=== PATIENT | male | born 1985 | race Caucasian/White ===

== ENCOUNTER 2020-04-20 17:36 | Inpatient (IN) | payer MEDICARE, MEDICAID, SELFPAY ==
[2020-04-20 17:46] VITALS: BP 109/72; PULSE 88; RESP 17; TEMP 36.9; O2SAT 99
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
[2020-04-20 18:53] VITALS: BP 94/65; PULSE 91; RESP 20; TEMP 36.6; O2SAT 100
--- NOTE | 2020-04-20 19:02 | PC.NURSE ---
Report received. PT just moved into the pod. Calm and cooperative. Needs to be seen by BHN. Med rec needs to be done STAT per provider.
[2020-04-20 19:43] LABS: MANUAL DIFF FLAG NO
[2020-04-20 19:55] LABS: Basophils Percent Auto 0.3 % (0-2); Hematocrit 36.6 % (42-52); Imm Gran Abs Auto 0.04 X10*3/uL (0.00-0.03); Imm Gran Pct Auto 0.3 % (0.0-0.4); Lymphocytes Absolute Auto 2.3 X10*3/uL (1.2-4.9); Lymphocytes Percent Auto 16.7 % (20-40); Mean Corpuscular HGB Conc 32.8 g/dl (31.0-36.0); Mean Corpuscular Hemoglobin 28.9 pg (27.0-33.0); Mean Corpuscular Volume 88.2 fL (80-98); Mean Platelet Volume 10.4 fL (9.4-12.4); Monocytes Absolute Auto 0.7 X10*3/uL (0.1-1.2); Monocytes Percent Auto 4.7 % (2-11); Neutrophils Absolute Auto 10.9 X10*3/uL (2.0-8.3); Platelet Count 214 X10*3/uL (160-400); Red Blood Count 4.15 X10*6/uL (4.60-5.80); Red Cell Distribution Width 14.3 % (11.0-16.0)
[2020-04-20 20:10] LABS: Anion Gap 14 (12-20); Blood Urea Nitrogen 11 mg/dL (9-16); Calcium 8.5 mg/dL (8.4-10.2); Carbon Dioxide 26 mmol/L (22-29); Chloride 103 mmol/L (96-108); Creatinine Clr Calc Pharmacy 99.6; Estimated Glomerular Filt Rate > 60; Glucose Random 123 mg/dL (60-115); Potassium 4.3 mmol/l (3.3-5.1); Sodium 139 mmol/L (135-145)
--- NOTE | 2020-04-20 20:11 | PC.NURSE ---
Called N to confirm they have received fax on PT. N stated they were not sure if someone would be out tonight for consult.
--- NOTE | 2020-04-20 21:53 | PC.NURSE ---
BHN at bedside.
--- NOTE | 2020-04-20 22:06 | PC.NURSE ---
PT is inpatient bed search at this time per [facility] PT is on a Section 12 at this time.
[2020-04-20 22:10] VITALS: BP 109/68; PULSE 91; RESP 18; TEMP 36.7; O2SAT 100
[2020-04-20] MEDS: Docusate Sodium 100 MG CAPSULE PO (22:36)
[2020-04-20] MEDS: traZODone HCL 100 MG TABLET PO (22:37)
[2020-04-20] MEDS: Divalproex Sodium 500 MG TABLET.DR PO (22:37)
[2020-04-20] MEDS: Benztropine Mesylate 1 MG TABLET PO (22:38)
[2020-04-20] MEDS: Desmopressin Acetate 0.2 MG TABLET 0.6 MG PO (22:38)
[2020-04-20] MEDS: cloZAPine 100 MG TABLET 300 MG PO (22:39)
[2020-04-20] MEDS: cloZAPine 25 MG TABLET 50 MG PO (22:39)
[2020-04-20 23:53] VITALS: RESP 17
--- NOTE | 2020-04-21 | ECG_ITS ---
Test Reason : MEDICAL CLEARANCE Blood Pressure : / mmHG Vent. Rate : 071 BPM Atrial Rate : 071 BPM P-R Int : 138 ms QRS Dur : 106 ms QT Int : 358 ms P-R-T Axes : 082 088 075 degrees QTc Int : 389 ms Normal sinus rhythm with sinus arrhythmia Nonspecific ST abnormality Intra-ventricular conduction delay Abnormal ECG When compared with ECG of 18-MAY-2019 08:37, No significant change was found Referred By: Dorothy Brooks Electronically Signed By:TACO STEPHENSON MD
[2020-04-21 06:19] VITALS: BP 100/63; PULSE 75; RESP 16; TEMP 36.8; O2SAT 100
--- NOTE | 2020-04-21 06:59 | PC.NURSE ---
report received. Pt currently sleeping, respirations even and unlabored, in no apparent distress. Breakfast at bedside. Pt is inpatient bedsearch.
--- NOTE | 2020-04-21 09:22 | PC.NURSE ---
This RN spoke with Kyle from [facility] for clarification on haldol deconate last administration date. Kyle stated that he will call back once he has access to medication record and stated that Cherrie has been 100% compliant with his medications . Kyle will fax over medication list and administration date as soon as he has access to record.
[2020-04-21 09:30] VITALS: BP 95/62; PULSE 75; RESP 18; TEMP 37.1; O2SAT 100
[2020-04-21 11:23] LABS: Amphetamine Screen Urine Not Detected (Not Detect); Barbiturates, Urine Not Detected (Not Detect); Benzodiazepines Screen Urine Not Detected (Not Detect); Cannabinoid Screen Urine POSITIVE (Not Detect); Cocaine Screen Urine POSITIVE (Not Detect); Opiate Screen Urine Not Detected (Not Detect); Phencyclidine Screen Urine Not Detected (Not Detect)
[2020-04-21 12:59] LABS: SARS COV2 PCR INHOUSE NEGATIVE (Negative)
--- NOTE | 2020-04-21 14:01 | PC.NURSE ---
Medication list recieved from intermediate, per staff pt due for Haldol Dec the week of the . Provider aware
[2020-04-21] MEDS: Divalproex Sodium 500 MG TABLET.DR PO ×2 (14:18→21:28)
[2020-04-21 18:13] VITALS: BP 110/64; PULSE 84; RESP 18; TEMP 37; O2SAT 100
--- NOTE | 2020-04-21 19:13 | PC.NURSE ---
Report received. PT is sitting in his room quietly. Calm and cooperative. Waiting to be transferred to .
[2020-04-21] MEDS: Benztropine Mesylate 1 MG TABLET PO (21:28)
[2020-04-21] MEDS: cloZAPine 100 MG TABLET 300 MG PO (21:29)
[2020-04-21] MEDS: traZODone HCL 100 MG TABLET PO (21:29)
[2020-04-21] MEDS: cloZAPine 25 MG TABLET 50 MG PO (21:29)
[2020-04-21] MEDS: Desmopressin Acetate 0.2 MG TABLET 0.6 MG PO (21:30)
[2020-04-21 22:54] LABS: Valproate 18.5 mcg/mL (50.0-100.0)
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
[2020-04-22 06:00] VITALS: BP 133/71; PULSE 102; TEMP 36.5
[2020-04-22 08:17] LABS: Estimated Average Glucose 105 mg/dL; Hemoglobin A1c % 5.3 %
[2020-04-22 08:46] LABS: Cholesterol 123 mg/dL; HDL Cholesterol 52 mg/dL; LDL Cholesterol Calculated 56 mg/dl; Triglycerides 76 mg/dL
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
[2020-04-22] MEDS: Divalproex Sodium 500 MG TABLET.DR PO ×3 (10:46→20:26)
[2020-04-22] MEDS: Nicotine Polacrilex 2 MG GUM BUCCAL (14:17)
[2020-04-22] MEDS: Flu Vacc QS2020-21(6mos up)/PF 0.5 ML SYRINGE IM (15:02)
[2020-04-22 18:13] VITALS: BP 106/66; PULSE 104; TEMP 36.9
[2020-04-22] MEDS: LORazepam 1 MG TABLET PO (18:20)
[2020-04-22] MEDS: Benztropine Mesylate 1 MG TABLET PO ×2 (18:20→20:26)
[2020-04-22] MEDS: HaloperidoL 5 MG TABLET PO (18:20)
[2020-04-22] MEDS: cloZAPine 100 MG TABLET 300 MG PO (20:25)
[2020-04-22] MEDS: traZODone HCL 100 MG TABLET PO (20:26)
[2020-04-22] MEDS: Desmopressin Acetate 0.2 MG TABLET 0.6 MG PO (20:26)
[2020-04-22] MEDS: cloZAPine 25 MG TABLET 50 MG PO (20:26)
[2020-04-23] MEDS: Divalproex Sodium 500 MG TABLET.DR PO ×3 (08:36→20:49)
[2020-04-23] MEDS: Nicotine Polacrilex 2 MG GUM BUCCAL (17:00)
[2020-04-23 18:00] VITALS: BP 127/70; PULSE 100; TEMP 36.4
[2020-04-23] MEDS: Desmopressin Acetate 0.2 MG TABLET 0.6 MG PO (20:49)
[2020-04-23] MEDS: traZODone HCL 100 MG TABLET PO (20:49)
[2020-04-23] MEDS: cloZAPine 25 MG TABLET 50 MG PO (20:50)
[2020-04-23] MEDS: cloZAPine 100 MG TABLET 300 MG PO (20:50)
[2020-04-23] MEDS: Benztropine Mesylate 1 MG TABLET PO (20:52)
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
[2020-04-24 06:10] VITALS: BP 120/67; PULSE 100; RESP 16; TEMP 36.4; O2SAT 99
[2020-04-24] MEDS: Divalproex Sodium 500 MG TABLET.DR PO ×3 (08:05→20:23)
[2020-04-24] MEDS: Nicotine Polacrilex 2 MG GUM BUCCAL ×2 (09:43→21:16)
--- NOTE | 2020-04-24 12:47 | HO.PSYCHPN ---
Subjective Subjective Date of Service: 04/24/20 Reason For Visit: psychosis and agitation Subjective Notes: Conditional Voluntary Interim History: Cherrie was in behavioral control despite there being a lot of agitated peers on the unit. He tended to keep to himself. He has been compliant with medications. Medication Compliance: Yes Side effects from medications: No Attending Groups: No Review of Systems Acute medical concerns: No Medical Review of Systems: unchanged Mental Status Exam Mental Status Exam Patient Appearance: Unkempt Patient Orientation: Person Level of Consciousness: Restless and Inappropriate Patient Behavior: Posturing, Wandering, Invasion - Personal Space and Poor Eye Contact Mood Description: Apathetic Affect Description: Apathetic Ability to Follow Directions: Poor Speech Pattern: Impoverished Memory Description: Immediate Impaired Hallucinations: None Delusions: Paranoid Ideation Thought Process: Slowed Thinking and Word Salad Thought Content: positive for Thought Blocking, positive for Incoherent, positive for Slowed Thinking, negative for Suicidal Ideation and negative for Homicidal Ideation Diagnostics Vital Signs (24Hr): Vital Signs - 24 hr 04/23/20 18:00 04/24/20 06:10 Temperature 97.5 F 97.6 F Pulse Rate 100 100 Respiratory Rate 16 Blood Pressure 127/70 120/67 Pulse Oximetry 99 Body Mass Index 20.0 Labs Results: 04/20/20 19:33 04/20/20 19:33 Medications Medications Current Medications Generic Name Dose Route Start Last Admin Trade Name Freq PRN Reason Stop Dose Admin Al Hydroxide/Mg Hydroxide 30 ml 04/21/20 19:32 Magnesium Hydrox/Alum Hydrox 30 Ml Oral.Susp PO Q6H PRN Heartburn/Nausea Benztropine Mesylate 1 mg 04/21/20 21:00 04/23/20 20:52 Benztropine Mesylate 1 Mg Tablet PO 1 mg BEDTIME STEF Administration Benztropine Mesylate 1 mg 04/22/20 18:00 04/22/20 18:20 Benztropine Mesylate 1 Mg Tablet PO 1 mg Q4H PRN Administration Extrapyramidal Effects Clozapine 50 mg 04/21/20 21:00 04/23/20 20:50 Clozapine 25 Mg Tablet PO 50 mg BEDTIME STEF Administration Clozapine 300 mg 04/21/20 21:00 04/23/20 20:50 Clozapine 100 Mg Tablet PO 300 mg BEDTIME STEF Administration Desmopressin Acetate 0.6 mg 04/21/20 21:00 04/23/20 20:49 Desmopressin Acetate 0.2 Mg Tablet PO 0.6 mg BEDTIME STEF Administration Divalproex Sodium 500 mg 04/21/20 09:00 04/24/20 08:05 Divalproex Sodium 500 Mg Tablet.Dr PO 500 mg TID STEF Administration Docusate Sodium 100 mg 04/20/20 21:57 04/20/20 22:36 Docusate Sodium 100 Mg Capsule PO 100 mg BID PRN Administration constipation Haloperidol 5 mg 04/22/20 18:17 04/22/20 18:20 Haloperidol 5 Mg Tablet PO 5 mg Q4H PRN Administration Anxiety Haloperidol Decanoate 100 mg 04/21/20 09:00 04/21/20 14:02 Haloperidol Decanoate 50 Mg/Ml Ampul IM Not Given Q28D STEF Hydroxyzine HCl 25 mg 04/21/20 19:32 Hydroxyzine Hcl 25 Mg Tablet PO BEDTIME PRN Anxiety Lorazepam 1 mg 04/22/20 18:00 04/22/20 18:20 Lorazepam 1 Mg Tablet PO 1 mg Q4H PRN Administration Anxiety Magnesium Hydroxide 30 ml 04/21/20 19:32 Milk Of Magnesia 30 Ml Oral.Susp PO DAILY PRN Constipation Nicotine Polacrilex 2 mg 04/21/20 21:49 04/24/20 09:43 Nicotine Polacrilex 2 Mg Gum BUCCAL 2 mg Q2H PRN Administration Nicotine Cravings Pharmacy Consult 1 each 04/20/20 19:51 Consult Rx Perform Med Rec MISCELLANE ONCE PRN Consult order Trazodone HCl 100 mg 04/21/20 21:00 04/23/20 20:49 Trazodone Hcl 100 Mg Tablet PO 100 mg BEDTIME STEF Administration Trazodone HCl 50 mg 04/21/20 19:32 Trazodone Hcl 50 Mg Tablet PO BEDTIME PRN Insomnia Allergies Allergies Allergy/AdvReac Type Severity Reaction Status Date / Time lorazepam [LORAZEPAM] AdvReac Intermediate paradoxical Unverified 03/03/20 15:53 disinhbition risperidone [From RISPERDAL] AdvReac Unknown SEVERE Unverified 03/03/20 15:53 AKATHESIA/ASSAULTIVE BEHAVIOR Assessment & Plan Assessment & Plan (1) Schizophrenia: Status: Acute Code(s): F20.9 - Schizophrenia, unspecified Assessment and Plan: CT current medication regime Greater than 50% of the session was spent on counseling and/or coordination of care Patient educated on: diagnosis, medication risk/benefits and substance abuse Informed Consent: does not understand Reason for contiued inpatient stay Substantial Risk for: inability to function and rapid decompensation
[2020-04-24 16:44] VITALS: BP 119/72; PULSE 99; TEMP 36.4
[2020-04-24 18:00] VITALS: BP 119/72; PULSE 99; TEMP 36.4
[2020-04-24] MEDS: cloZAPine 25 MG TABLET 50 MG PO (20:21)
[2020-04-24] MEDS: cloZAPine 100 MG TABLET 300 MG PO (20:22)
[2020-04-24] MEDS: Benztropine Mesylate 1 MG TABLET PO (20:22)
[2020-04-24] MEDS: Desmopressin Acetate 0.2 MG TABLET 0.6 MG PO (20:22)
[2020-04-24] MEDS: traZODone HCL 100 MG TABLET PO (21:23)
[2020-04-25 06:00] VITALS: BP 107/71; PULSE 106; TEMP 36.3
[2020-04-25] MEDS: Divalproex Sodium 500 MG TABLET.DR PO ×3 (09:18→20:58)
--- NOTE | 2020-04-25 14:11 | HO.PSYCHPN ---
Subjective Subjective Date of Service: 04/25/20 Reason For Visit: psychosis and agitation Subjective Notes: Conditional Voluntary Interim History: Cherrie was in behavioral control despite there being a lot of agitated peers on the unit. He tended to keep to himself. He is eating adequately. SW will be in contact with his house staff. He has been compliant with medications. Medication Compliance: Yes Side effects from medications: No Attending Groups: No Review of Systems Acute medical concerns: No Medical Review of Systems: unchanged Mental Status Exam Mental Status Exam Patient Appearance: Unkempt Patient Orientation: Person Level of Consciousness: Restless and Inappropriate Patient Behavior: Posturing, Wandering, Invasion - Personal Space and Poor Eye Contact Mood Description: Apathetic Affect Description: Apathetic Ability to Follow Directions: Poor Speech Pattern: Impoverished Memory Description: Immediate Impaired Hallucinations: None Delusions: Paranoid Ideation Thought Process: Slowed Thinking and Word Salad Thought Content: positive for Thought Blocking, positive for Incoherent, positive for Slowed Thinking, negative for Suicidal Ideation and negative for Homicidal Ideation Judgement: Fair Diagnostics Vital Signs (24Hr): Vital Signs - 24 hr 04/24/20 16:44 04/24/20 18:00 04/25/20 06:00 Temperature 97.6 F 97.6 F 97.4 F Pulse Rate 99 99 106 H Blood Pressure 119/72 119/72 107/71 Body Mass Index 20.0 Labs Results: 04/20/20 19:33 04/20/20 19:33 Medications Medications Current Medications Generic Name Dose Route Start Last Admin Trade Name Freq PRN Reason Stop Dose Admin Al Hydroxide/Mg Hydroxide 30 ml 04/21/20 19:32 Magnesium Hydrox/Alum Hydrox 30 Ml Oral.Susp PO Q6H PRN Heartburn/Nausea Benztropine Mesylate 1 mg 04/21/20 21:00 04/24/20 20:22 Benztropine Mesylate 1 Mg Tablet PO 1 mg BEDTIME STEF Administration Benztropine Mesylate 1 mg 04/22/20 18:00 04/22/20 18:20 Benztropine Mesylate 1 Mg Tablet PO 1 mg Q4H PRN Administration Extrapyramidal Effects Clozapine 50 mg 04/21/20 21:00 04/24/20 20:21 Clozapine 25 Mg Tablet PO 50 mg BEDTIME STEF Administration Clozapine 300 mg 04/21/20 21:00 04/24/20 20:22 Clozapine 100 Mg Tablet PO 300 mg BEDTIME STEF Administration Desmopressin Acetate 0.6 mg 04/21/20 21:00 04/24/20 20:22 Desmopressin Acetate 0.2 Mg Tablet PO 0.6 mg BEDTIME STEF Administration Divalproex Sodium 500 mg 04/21/20 09:00 04/25/20 09:18 Divalproex Sodium 500 Mg Tablet.Dr PO 500 mg TID STEF Administration Docusate Sodium 100 mg 04/20/20 21:57 04/20/20 22:36 Docusate Sodium 100 Mg Capsule PO 100 mg BID PRN Administration constipation Haloperidol 5 mg 04/22/20 18:17 04/22/20 18:20 Haloperidol 5 Mg Tablet PO 5 mg Q4H PRN Administration Anxiety Haloperidol Decanoate 100 mg 04/21/20 09:00 04/21/20 14:02 Haloperidol Decanoate 50 Mg/Ml Ampul IM Not Given Q28D STEF Hydroxyzine HCl 25 mg 04/21/20 19:32 Hydroxyzine Hcl 25 Mg Tablet PO BEDTIME PRN Anxiety Lorazepam 1 mg 04/22/20 18:00 04/22/20 18:20 Lorazepam 1 Mg Tablet PO 1 mg Q4H PRN Administration Anxiety Magnesium Hydroxide 30 ml 04/21/20 19:32 Milk Of Magnesia 30 Ml Oral.Susp PO DAILY PRN Constipation Nicotine Polacrilex 2 mg 04/21/20 21:49 04/24/20 21:16 Nicotine Polacrilex 2 Mg Gum BUCCAL 2 mg Q2H PRN Administration Nicotine Cravings Pharmacy Consult 1 each 04/20/20 19:51 Consult Rx Perform Med Rec MISCELLANE ONCE PRN Consult order Trazodone HCl 100 mg 04/21/20 21:00 04/24/20 21:23 Trazodone Hcl 100 Mg Tablet PO 100 mg BEDTIME STEF Administration Trazodone HCl 50 mg 04/21/20 19:32 Trazodone Hcl 50 Mg Tablet PO BEDTIME PRN Insomnia Allergies Allergies Allergy/AdvReac Type Severity Reaction Status Date / Time lorazepam [LORAZEPAM] AdvReac Intermediate paradoxical Unverified 03/03/20 15:53 disinhbition risperidone [From RISPERDAL] AdvReac Unknown SEVERE Unverified 03/03/20 15:53 AKATHESIA/ASSAULTIVE BEHAVIOR Assessment & Plan Assessment & Plan (1) Schizophrenia: Status: Acute Code(s): F20.9 - Schizophrenia, unspecified Assessment and Plan: CT current treatment plan Greater than 50% of the session was spent on counseling and/or coordination of care Patient educated on: diagnosis, medication risk/benefits and substance abuse Informed Consent: does not understand Reason for contiued inpatient stay Substantial Risk for: rapid decompensation
[2020-04-25] MEDS: cloZAPine 25 MG TABLET 50 MG PO (20:57)
[2020-04-25] MEDS: cloZAPine 100 MG TABLET 300 MG PO (20:57)
[2020-04-25] MEDS: Benztropine Mesylate 1 MG TABLET PO (20:57)
[2020-04-25] MEDS: traZODone HCL 100 MG TABLET PO (20:58)
[2020-04-25] MEDS: Desmopressin Acetate 0.2 MG TABLET 0.6 MG PO (20:58)
[2020-04-25] MEDS: Nicotine Polacrilex 2 MG GUM BUCCAL (21:00)
[2020-04-26 06:30] VITALS: BP 95/60; PULSE 73; RESP 16; TEMP 35.9; O2SAT 100
--- NOTE | 2020-04-26 09:37 | P.PNPSI_ITS ---
Subjective Subjective Date of Service: 04/26/20 Reason For Visit: psychosis and agitation Subjective Notes: Conditional Voluntary Interim History: Cherrie was in behavioral control despite there being a lot of agitated peers on the unit. He tended to keep to himself. He is asking when he can leave the hospital and understands that we will work with his staff. He is eating very well SW has been in contact with his staff and DC planned for 04/27/20 He has been compliant with medications. Medication Compliance: Yes Side effects from medications: No Attending Groups: No Review of Systems Acute medical concerns: No Medical Review of Systems: unchanged Mental Status Exam Mental Status Exam Patient Appearance: Well Grooomed Patient Orientation: Person Level of Consciousness: Restless and Inappropriate Patient Behavior: Appropriate, Wandering and Poor Eye Contact Mood Description: Apathetic Affect Description: Apathetic Ability to Follow Directions: Poor Speech Pattern: Impoverished Memory Description: Immediate Impaired Hallucinations: None Delusions: Paranoid Ideation Thought Process: Slowed Thinking Thought Content: positive for Thought Blocking, positive for Incoherent, posi tive for Slowed Thinking, negative for Suicidal Ideation and negative for Homicidal Ideation Judgement: Fair Diagnostics Vital Signs (24Hr): Vital Signs - 24 hr 04/26/20 06:30 Temperature 96.6 F L Pulse Rate 73 Respiratory Rate 16 Blood Pressure 95/60 Pulse Oximetry 100 Body Mass Index 20.0 Labs Results: 04/20/20 19:33 04/20/20 19:33 Medications Medications Current Medications Generic Name Dose Route Start Last Admin Trade Name Freq PRN Reason Stop Dose Admin Al Hydroxide/Mg Hydroxide 30 ml 04/21/20 19:32 Magnesium Hydrox/Alum Hydrox 30 Ml Oral.Susp PO Q6H PRN Heartburn/Nausea Benztropine Mesylate 1 mg 04/21/20 21:00 04/25/20 20:57 Benztropine Mesylate 1 Mg Tablet PO 1 mg BEDTIME STEF Administration Benztropine Mesylate 1 mg 04/22/20 18:00 04/22/20 18:20 Benztropine Mesylate 1 Mg Tablet PO 1 mg Q4H PRN Administration Extrapyramidal Effects Clozapine 50 mg 04/21/20 21:00 04/25/20 20:57 Clozapine 25 Mg Tablet PO 50 mg BEDTIME STEF Administration Clozapine 300 mg 04/21/20 21:00 04/25/20 20:57 Clozapine 100 Mg Tablet PO 300 mg BEDTIME STEF Administration Desmopressin Acetate 0.6 mg 04/21/20 21:00 04/25/20 20:58 Desmopressin Acetate 0.2 Mg Tablet PO 0.6 mg BEDTIME STEF Administration Divalproex Sodium 500 mg 04/21/20 09:00 04/25/20 20:58 Divalproex Sodium 500 Mg Tablet.Dr PO 500 mg TID STEF Administration Docusate Sodium 100 mg 04/20/20 21:57 04/20/20 22:36 Docusate Sodium 100 Mg Capsule PO 100 mg BID PRN Administration constipation Haloperidol 5 mg 04/22/20 18:17 04/22/20 18:20 Haloperidol 5 Mg Tablet PO 5 mg Q4H PRN Administration Anxiety Haloperidol Decanoate 100 mg 04/21/20 09:00 04/21/20 14:02 Haloperidol Decanoate 50 Mg/Ml Ampul IM Not Given Q28D STEF Hydroxyzine HCl 25 mg 04/21/20 19:32 Hydroxyzine Hcl 25 Mg Tablet PO BEDTIME PRN Anxiety Lorazepam 1 mg 04/22/20 18:00 04/22/20 18:20 Lorazepam 1 Mg Tablet PO 1 mg Q4H PRN Administration Anxiety Magnesium Hydroxide 30 ml 04/21/20 19:32 Milk Of Magnesia 30 Ml Oral.Susp PO DAILY PRN Constipation Nicotine Polacrilex 2 mg 04/21/20 21:49 04/25/20 21:00 Nicotine Polacrilex 2 Mg Gum BUCCAL 2 mg Q2H PRN Administration Nicotine Cravings Pharmacy Consult 1 each 04/20/20 19:51 Consult Rx Perform Med Rec MISCELLANE ONCE PRN Consult order Trazodone HCl 100 mg 04/21/20 21:00 04/25/20 20:58 Trazodone Hcl 100 Mg Tablet PO 100 mg BEDTIME STEF Administration Trazodone HCl 50 mg 04/21/20 19:32 Trazodone Hcl 50 Mg Tablet PO BEDTIME PRN Insomnia Allergies Allergies Allergy/AdvReac Type Severity Reaction Status Date / Time lorazepam [LORAZEPAM] AdvReac Intermediate paradoxical Unverified 03/03/20 15:53 disinhbition risperidone [From RISPERDAL] AdvReac Unknown SEVERE Unverified 03/03/20 15:53 AKATHESIA/ASSAULTIVE BEHAVIOR Assessment & Plan Assessment & Plan (1) Schizophrenia: Status: Acute Code(s): F20.9 - Schizophrenia, unspecified (2) Substance abuse: Status: Acute Code(s): F19.10 - Other psychoactive substance abuse, uncomplicated Assessment and Plan: Continue current plan of treatment Greater than 50% of the session was spent on counseling and/or coordination of c are Patient educated on: diagnosis, medication risk/benefits and substance abuse Informed Consent: does not understand Reason for contiued inpatient stay Substantial Risk for: rapid decompensation
[2020-04-26] MEDS: Divalproex Sodium 500 MG TABLET.DR PO ×3 (09:41→20:09)
[2020-04-26 18:00] VITALS: BP 125/66; PULSE 91; TEMP 36.8
[2020-04-26] MEDS: Nicotine Polacrilex 2 MG GUM BUCCAL (20:06)
[2020-04-26] MEDS: cloZAPine 100 MG TABLET 300 MG PO (20:08)
[2020-04-26] MEDS: Benztropine Mesylate 1 MG TABLET PO (20:09)
[2020-04-26] MEDS: traZODone HCL 100 MG TABLET PO (20:09)
[2020-04-26] MEDS: Desmopressin Acetate 0.2 MG TABLET 0.6 MG PO (20:09)
[2020-04-26] MEDS: cloZAPine 25 MG TABLET 50 MG PO (20:49)
[2020-04-27 08:17] VITALS: BP 90/54; PULSE 94; RESP 14; TEMP 36.9; O2SAT 100
[2020-04-27] MEDS: Divalproex Sodium 500 MG TABLET.DR PO ×3 (08:35→20:12)
[2020-04-27] MEDS: Nicotine Polacrilex 2 MG GUM BUCCAL ×2 (09:11→17:21)
--- NOTE | 2020-04-27 09:16 | P.PNPSI_ITS ---
Subjective Subjective Date of Service: 04/27/20 Reason For Visit: psychosis and agitation Subjective Notes: Conditional Voluntary Interim History: Cherrie was in behavioral control despite there being a lot of agitated peers on the unit. He tended to keep to himself. He is being discharged back to his retirement tomorrow and he is pleased about this. He has been compliant with medications. Medication Compliance: Yes Side effects from medications: No Attending Groups: No Review of Systems Acute medical concerns: No Medical Review of Systems: unchanged Mental Status Exam Mental Status Exam Patient Appearance: Well Grooomed Patient Orientation: Person Level of Consciousness: Restless and Inappropriate Patient Behavior: Appropriate, Wandering and Poor Eye Contact Mood Description: Apathetic Affect Description: Apathetic Ability to Follow Directions: Poor Speech Pattern: Impoverished Memory Description: Immediate Impaired Hallucinations: None Delusions: Paranoid Ideation Thought Process: Slowed Thinking Thought Content: positive for Thought Blocking, positive for Incoherent, po sitive for Slowed Thinking, negative for Suicidal Ideation and negative for Homicidal Ideation Judgement: Fair Diagnostics Vital Signs (24Hr): Vital Signs - 24 hr 04/26/20 18:00 04/27/20 08:17 Temperature 98.2 F 98.4 F Pulse Rate 91 94 Respiratory Rate 14 Blood Pressure 125/66 90/54 L Pulse Oximetry 100 Body Mass Index 20.0 Labs Results: 04/20/20 19:33 04/20/20 19:33 Medications Medications Current Medications Generic Name Dose Route Start Last Admin Trade Name Freq PRN Reason Stop Dose Admin Al Hydroxide/Mg Hydroxide 30 ml 04/21/20 19:32 Magnesium Hydrox/Alum Hydrox 30 Ml Oral.Susp PO Q6H PRN Heartburn/Nausea Benztropine Mesylate 1 mg 04/21/20 21:00 04/26/20 20:09 Benztropine Mesylate 1 Mg Tablet PO 1 mg BEDTIME STEF Administration Benztropine Mesylate 1 mg 04/22/20 18:00 04/22/20 18:20 Benztropine Mesylate 1 Mg Tablet PO 1 mg Q4H PRN Administration Extrapyramidal Effects Clozapine 50 mg 04/21/20 21:00 04/26/20 20:49 Clozapine 25 Mg Tablet PO 50 mg BEDTIME STEF Administration Clozapine 300 mg 04/21/20 21:00 04/26/20 20:08 Clozapine 100 Mg Tablet PO 300 mg BEDTIME STEF Administration Desmopressin Acetate 0.6 mg 04/21/20 21:00 04/26/20 20:09 Desmopressin Acetate 0.2 Mg Tablet PO 0.6 mg BEDTIME STEF Administration Divalproex Sodium 500 mg 04/21/20 09:00 04/27/20 08:35 Divalproex Sodium 500 Mg Tablet.Dr PO 500 mg TID STEF Administration Docusate Sodium 100 mg 04/20/20 21:57 04/20/20 22:36 Docusate Sodium 100 Mg Capsule PO 100 mg BID PRN Administration constipation Haloperidol 5 mg 04/22/20 18:17 04/22/20 18:20 Haloperidol 5 Mg Tablet PO 5 mg Q4H PRN Administration Anxiety Haloperidol Decanoate 100 mg 04/21/20 09:00 04/21/20 14:02 Haloperidol Decanoate 50 Mg/Ml Ampul IM Not Given Q28D STEF Hydroxyzine HCl 25 mg 04/21/20 19:32 Hydroxyzine Hcl 25 Mg Tablet PO BEDTIME PRN Anxiety Lorazepam 1 mg 04/22/20 18:00 04/22/20 18:20 Lorazepam 1 Mg Tablet PO 1 mg Q4H PRN Administration Anxiety Magnesium Hydroxide 30 ml 04/21/20 19:32 Milk Of Magnesia 30 Ml Oral.Susp PO DAILY PRN Constipation Nicotine Polacrilex 2 mg 04/21/20 21:49 04/27/20 09:11 Nicotine Polacrilex 2 Mg Gum BUCCAL 2 mg Q2H PRN Administration Nicotine Cravings Pharmacy Consult 1 each 04/20/20 19:51 Consult Rx Perform Med Rec MISCELLANE ONCE PRN Consult order Trazodone HCl 100 mg 04/21/20 21:00 04/26/20 20:09 Trazodone Hcl 100 Mg Tablet PO 100 mg BEDTIME STEF Administration Trazodone HCl 50 mg 04/21/20 19:32 Trazodone Hcl 50 Mg Tablet PO BEDTIME PRN Insomnia Allergies Allergies Allergy/AdvReac Type Severity Reaction Status Date / Time lorazepam [LORAZEPAM] AdvReac Intermediate paradoxical Unverified 03/03/20 15:53 disinhbition risperidone [From RISPERDAL] AdvReac Unknown SEVERE Unverified 03/03/20 15:53 AKATHESIA/ASSAULTIVE BEHAVIOR Assessment & Plan Assessment & Plan (1) Schizophrenia: Status: Acute Code(s): F20.9 - Schizophrenia, unspecified Assessment and Plan: CT current treatment plan. DC in am Greater than 50% of the session was spent on counseling and/or coordination of care Patient educated on: diagnosis, medication risk/benefits and substance abuse Informed Consent: does not understand
[2020-04-27 13:20] LABS: Valproate 40.4 mcg/mL (50.0-100.0)
[2020-04-27] MEDS: HaloperidoL 5 MG TABLET PO (17:54)
[2020-04-27] MEDS: LORazepam 1 MG TABLET PO (17:54)
[2020-04-27 17:56] VITALS: BP 96/63; PULSE 97; TEMP 37.2
[2020-04-27] MEDS: cloZAPine 25 MG TABLET 50 MG PO (20:12)
[2020-04-27] MEDS: cloZAPine 100 MG TABLET 300 MG PO (20:12)
[2020-04-27] MEDS: traZODone HCL 100 MG TABLET PO (20:12)
[2020-04-27] MEDS: Desmopressin Acetate 0.2 MG TABLET 0.6 MG PO (20:12)
[2020-04-27] MEDS: Benztropine Mesylate 1 MG TABLET PO (20:12)
[2020-04-28] MEDS: Divalproex Sodium 500 MG TABLET.DR PO (09:14)
[2020-04-28 09:46] VITALS: BP 98/58; PULSE 85; RESP 16; TEMP 36.3; O2SAT 98
[2020-04-28 09:47] VITALS: BMI 20.9
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
== END 2020-04-28 11:20 | disposition home or self-care (01) | DRG 885 ==
LOC: HO.ED 04-21 20:20 → HO.PM5 04-21 20:22
PROVIDERS: Nurse Practitioner Family; Physician Assistant; Admitting Provider Psychiatry & Neurology Psychiatry; Emergency Provider Emergency Medicine; Visit Provider Psychiatry & Neurology Psychiatry
DX: F20.9 Schizophrenia, unspecified (principal); F17.210 Nicotine dependence, cigarettes, uncomplicated; F14.10 Cocaine abuse, uncomplicated; Z20.828 Contact with and (suspected) exposure to other viral communicable diseases; Z23 Encounter for immunization; Z71.6 Tobacco abuse counseling; Z79.899 Other long term (current) drug therapy
CPT/HCPCS: 36415; 80048; 80061; 80164; 80307; 83036; 85025; 90686; 93005; 96372; 99284; 99285; U0003

== ENCOUNTER 2020-05-14 18:59 | Emergency (ER) | payer MEDICARE, MEDICAID, SELFPAY ==
[2020-05-14 19:18] VITALS: BP 117/81; PULSE 110; RESP 18; TEMP 36.9; O2SAT 98; BMI 20.3
--- NOTE | 2020-05-14 19:34 | ED_ITS ---
HPI - Psych General Chief Complaint: Psychiatric Symptoms Stated Complaint: Crisis Time Seen by Provider: 05/14/20 19:32 Source: EMS Mode of arrival: ambulatory Limitations: altered mental status ( Auditory visual hallucinations, appears to be in psychiatric distress) History of Present Illness HPI Narrative: 34-year-old male presents with auditory visual hallucinations, unable to answer questions at this time. This patient is well-known to this facility and has had multiple admissions for similar circumstances. MD complaint: suicidal ideation, feels depressed, altered mental status and hallucinations Onset (ago): unknown Duration: constant History of same: Yes Relieving factors: none Associated psychiatric symptoms: depression, racing thoughts, auditory hallucinations, visual hallucinations and delusions Associated symptoms: denies other symptoms Treatments prior to arrival: placed on mental health hold Related Data Previous Rx's Medication Instructions Recorded benztropine 1 tab PO BEDTIME #30 tab 04/27/20 clozapine 1 tab PO BEDTIME #30 tab 04/27/20 clozapine 3 tab PO BEDTIME #90 tab 04/27/20 desmopressin 0.6 mg PO BEDTIME #90 tab 04/27/20 divalproex 1 tab PO TID #90 tab 04/27/20 docusate sodium [DOK] 1 cap PO BID PRN #60 cap 04/27/20 haloperidol decanoate 1 ml IM QMONTH #1 ml 04/27/20 trazodone 1 tab PO BEDTIME #30 tab 04/27/20 Allergies Allergy/AdvReac Type Severity Reaction Status Date / Time lorazepam [LORAZEPAM] AdvReac Intermediate paradoxical Unverified 03/03/20 15:53 disinhbition risperidone [From RISPERDAL] AdvReac Unknown SEVERE Unverified 03/03/20 15:53 AKATHESIA/ASSAULTIVE BEHAVIOR Review of Systems Review of Systems: Constitutional: No Fever, No Chills ENT/Mouth: No Ear Pain, No Nasal Congestion, No sore throat Eyes: No Eye Pain, No Swelling, No Redness Cardiovascular: No Chest Pain, No SOB Respiratory: No Cough, No Sputum, No Dyspnea Gastrointestinal: No Nausea, No Vomiting, No Diarrhea, No Hematochezia, No Melena Genitourinary: No Dysuria, No Urinary Frequency, No Hematuria Musculoskeletal: No Myalgias Skin: No Skin Lesions, No rash Neuro: No Weakness, No Numbness, No Paresthesias, No Dizziness, No Headache Psych: positive Anxiety, positive Depression, positive Auditory visual hallucinations Heme/Lymph: No Lymphadenopathy Endocrine: No Polyuria, No Polydipsia Yes all other systems are reviewed and are negative [facility] Past Medical History Source: old records reviewed Medical History Ankle fracture, left Auditory hallucinations Borderline intellectual functioning Chronic headaches EtOH dependence Incontinence No known health problems Paranoia Schizophrenia Substance abuse Visual hallucinations Social History Social History Household Members: Other Housing: Other Alcohol intake: unknown Smoking Status: Current every day smoker Tobacco Type: Cigarette Packs Per Day: 1 Cigarettes Per Day: 20.0 Smoked in Last 30 Days: Yes Use of substances other than those prescribed or required for medical reasons: Unknown Substance Use Type: Crack/Cocaine and Marijuana Any prior treatment program specific to substance use: Yes Advance Directives: No Advance Directives Information Provided: Yes service: No Physical Exam Vital Signs: Vital Signs: Last Vital Signs Temp 98.1 F 05/14/20 20:59 Pulse 100 05/14/20 20:59 Resp 18 05/15/20 01:06 BP 94/43 L 05/14/20 20:59 Pulse Ox 96 05/14/20 20:59 Body Mass Index 20.3 Appearance: Alert. Oriented. moderate distress. reacting to auditory hallucinations Eyes: Pupils equal, round and reactive to light. ENT: Pharynx normal. Neck: Normal inspection. Neck supple. CVS: Normal heart rate and rhythm. Pulses normal. Respiratory: No respiratory distress. Breath sounds normal. Abdomen: Soft and nontender. Skin: Skin warm and dry. Normal skin color. Normal skin turgor. Extremities: No lower extremity edema. Neuro: No motor deficit. No sensory deficit. Course Course Course Narrative: 34-year-old male with significant psychiatric history of schizophrenia, and substance abuse. Plan of care is for drugs of abuse screen, labs and crisis consult. Depakote level below therapeutic range, we will add 500 mg of Depakote to his evening dose. Drugs of abuse screen positive for cocaine and marijuana. BHN consult still pending. MDM - Psych Differential Diagnosis Differential diagnosis: Likely acute psychosis, suicidal ideation, depression, drug-induced psychotic disorder, acute anxiety, substance abuse and schizoaffective disorder Restraints Face to Face Assessment: Face to Face Assessment: Current Situation: After assessment of the patient, a review of the pertinent medical record and a discussion with nursing staff, I feel the patient requires a restrain i ntervention. Reaction To: [] Medical Condition: [] Behavioral State: [] Continued Need: [] Lab Data Attestation: I reviewed the patient's lab results. Result diagrams: 05/14/20 19:52 Labs: Lab Results 05/14/20 05/14/20 05/14/20 Range/Units 19:52 19:52 19:52 WBC 7.5 (4.8-10.8) X10*3/uL RBC 3.94 L (4.60-5.80) X10*6/uL Hgb 11.4 L (14.0-18.0) g/dl Hct 35.2 L (42-52) % MCV 89.3 (80-98) fL MCH 28.9 (27.0-33.0) pg MCHC 32.4 (31.0-36.0) g/dl RDW 14.9 (11.0-16.0) % Plt Count 205 (160-400) X10*3/uL MPV 10.4 (9.4-12.4) fL Immature Gran % (Auto) 0.3 (0.0-0.4) % Neut % (Auto) 64.6 (45-73) % Lymph % (Auto) 26.7 (20-40) % [place] % (Auto) 7.9 (2-11) % Eos % (Auto) 0.0 (0-4) % Baso % (Auto) 0.5 (0-2) % Lymph # (Auto) 2.0 (1.2-4.9) X10*3/uL [place] # (Auto) 0.6 (0.1-1.2) X10*3/uL Eos # (Auto) 0.0 (0.0-0.4) X10*3/uL Baso # (Auto) 0.0 (0.0-0.2) X10*3/uL Abs Immat Gran (auto) 0.02 (0.00-0.03) X10*3/uL Absolute Neuts (auto) 4.8 (2.0-8.3) X10*3/uL Absolute Nucleated RBC 0.000 (0.0-0.012) X10*3/uL Nucleated RBC % (auto) 0.0 (0.0-0.2) /100WBC Urine Opiates Screen (Not Detect) Ur Barbiturates Screen (Not Detect) Valproic Acid 48.3 L (50.0-100.0) mcg/mL Ur Phencyclidine Scrn (Not Detect) Ur Amphetamines Screen (Not Detect) U Benzodiazepines Scrn (Not Detect) Urine Cocaine Screen (Not Detect) U Marijuana (THC) Screen (Not Detect) Ethyl Alcohol < 10 mg/dL 05/14/20 Range/Units 19:54 WBC (4.8-10.8) X10*3/uL RBC (4.60-5.80) X10*6/uL Hgb (14.0-18.0) g/dl Hct (42-52) % MCV (80-98) fL MCH (27.0-33.0) pg MCHC (31.0-36.0) g/dl RDW (11.0-16.0) % Plt Count (160-400) X10*3/uL MPV (9.4-12.4) fL Immature Gran % (Auto) (0.0-0.4) % Neut % (Auto) (45-73) % Lymph % (Auto) (20-40) % [place] % (Auto) (2-11) % Eos % (Auto) (0-4) % Baso % (Auto) (0-2) % Lymph # (Auto) (1.2-4.9) X10*3/uL [place] # (Auto) (0.1-1.2) X10*3/uL Eos # (Auto) (0.0-0.4) X10*3/uL Baso # (Auto) (0.0-0.2) X10*3/uL Abs Immat Gran (auto) (0.00-0.03) X10*3/uL Absolute Neuts (auto) (2.0-8.3) X10*3/uL Absolute Nucleated RBC (0.0-0.012) X10*3/uL Nucleated RBC % (auto) (0.0-0.2) /100WBC Urine Opiates Screen Not Detected (Not Detect) Ur Barbiturates Screen Not Detected (Not Detect) Valproic Acid (50.0-100.0) mcg/mL Ur Phencyclidine Scrn Not Detected (Not Detect) Ur Amphetamines Screen Not Detected (Not Detect) U Benzodiazepines Scrn Not Detected (Not Detect) Urine Cocaine Screen POSITIVE H (Not Detect) U Marijuana (THC) Screen POSITIVE H (Not Detect) Ethyl Alcohol mg/dL Discharge Plan Discharge Clinical Impression: Substance abuse Schizophrenia Qualifiers: Schizophrenia type: unspecified Qualified Code(s): F20.9 - Schizophrenia, unspecified Prescriptions: No Action clozapine 100 mg tablet 3 tab PO BEDTIME Qty: 90 RF: 0 haloperidol decanoate 100 mg/mL solution 1 ml IM QMONTH Qty: 1 RF: 0 desmopressin 0.2 mg tablet 0.6 mg PO BEDTIME Qty: 90 RF: 0 divalproex 500 mg tablet,delayed release (DR/EC) 1 tab PO TID Qty: 90 RF: 0 trazodone 100 mg tablet 1 tab PO BEDTIME Qty: 30 RF: 0 benztropine 1 mg tablet 1 tab PO BEDTIME Qty: 30 RF: 0 docusate sodium [DOK] 100 mg capsule 1 cap PO BID PRN (Reason: constipation) Qty: 60 RF: 0 clozapine 50 mg tablet 1 tab PO BEDTIME Qty: 30 RF: 0
[2020-05-14 20:07] LABS: Basophils Percent Auto 0.5 % (0-2); Hematocrit 35.2 % (42-52); Hemoglobin 11.4 g/dl (14.0-18.0); Imm Gran Abs Auto 0.02 X10*3/uL (0.00-0.03); Imm Gran Pct Auto 0.3 % (0.0-0.4); Lymphocytes Percent Auto 26.7 % (20-40); MANUAL DIFF FLAG NO; Mean Corpuscular HGB Conc 32.4 g/dl (31.0-36.0); Mean Corpuscular Hemoglobin 28.9 pg (27.0-33.0); Mean Corpuscular Volume 89.3 fL (80-98); Mean Platelet Volume 10.4 fL (9.4-12.4); Monocytes Absolute Auto 0.6 X10*3/uL (0.1-1.2); Monocytes Percent Auto 7.9 % (2-11); Neutrophils Absolute Auto 4.8 X10*3/uL (2.0-8.3); Neutrophils Percent Auto 64.6 % (45-73); Platelet Count 205 X10*3/uL (160-400); Red Blood Count 3.94 X10*6/uL (4.60-5.80); Red Cell Distribution Width 14.9 % (11.0-16.0); White Blood Count 7.5 X10*3/uL (4.8-10.8)
[2020-05-14 20:54] LABS: Ethanol < 10 mg/dL
[2020-05-14 20:57] LABS: Amphetamine Screen Urine Not Detected (Not Detect); Barbiturates, Urine Not Detected (Not Detect); Benzodiazepines Screen Urine Not Detected (Not Detect); Cannabinoid Screen Urine POSITIVE (Not Detect); Cocaine Screen Urine POSITIVE (Not Detect); Opiate Screen Urine Not Detected (Not Detect); Phencyclidine Screen Urine Not Detected (Not Detect)
[2020-05-14 20:59] VITALS: BP 94/43; PULSE 100; RESP 20; TEMP 36.7; O2SAT 96
[2020-05-14 21:30] LABS: Valproate 48.3 mcg/mL (50.0-100.0)
--- NOTE | 2020-05-14 22:00 | PC.NURSE ---
MARISELAN called and faxed. GE said PT would be seen after 0700 on 05/15.
[2020-05-15] MEDS: Docusate Sodium 100 MG CAPSULE PO (00:14)
[2020-05-15] MEDS: Divalproex Sodium 500 MG TABLET.DR PO ×2 (00:15→00:16)
[2020-05-15] MEDS: traZODone HCL 100 MG TABLET PO (00:15)
[2020-05-15] MEDS: Benztropine Mesylate 1 MG TABLET PO (00:16)
[2020-05-15] MEDS: Desmopressin Acetate 0.2 MG TABLET 0.6 MG PO (00:20)
[2020-05-15] MEDS: cloZAPine 100 MG TABLET 300 MG PO (00:21)
[2020-05-15 01:06] VITALS: RESP 18
[2020-05-15 06:36] VITALS: BP 104/75; PULSE 88; RESP 16; TEMP 36.7; O2SAT 99
--- NOTE | 2020-05-15 07:02 | PC.NURSE ---
Report received. PT currently sleeping, respirations even and unlabored, in no apparent distress. Pt waiting to be seen by N.
--- NOTE | 2020-05-15 07:46 | PC.NURSE ---
BHN at bedside for eval.
== END 2020-05-15 08:28 | disposition home or self-care (01) ==
PROVIDERS: Nurse Practitioner Family; Emergency Provider Emergency Medicine
DX: F33.1 Major depressive disorder, recurrent, moderate (principal); F20.9 Schizophrenia, unspecified; R45.851 Suicidal ideations; F17.210 Nicotine dependence, cigarettes, uncomplicated; F14.10 Cocaine abuse, uncomplicated; F12.10 Cannabis abuse, uncomplicated; Z71.6 Tobacco abuse counseling; Z79.899 Other long term (current) drug therapy; Z71.51 Drug abuse counseling and surveillance of drug abuser
CPT/HCPCS: 36415; 80164; 80307; 80320; 85025; 99284

== ENCOUNTER 2020-05-30 17:29 | Emergency (ER) | payer MEDICARE, MEDICAID, SELFPAY ==
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
[2020-05-30 17:47] VITALS: BP 115/61; PULSE 99; RESP 15; TEMP 37.1; O2SAT 98; BMI 19.9
[2020-05-30 18:37] LABS: Amphetamine Screen Urine Not Detected (Not Detect); Barbiturates, Urine Not Detected (Not Detect); Benzodiazepines Screen Urine Not Detected (Not Detect); Cannabinoid Screen Urine POSITIVE (Not Detect); Cocaine Screen Urine POSITIVE (Not Detect); Opiate Screen Urine Not Detected (Not Detect); Phencyclidine Screen Urine Not Detected (Not Detect)
--- NOTE | 2020-05-30 20:08 | PC.NURSE ---
PER WAYLON (CARE TEAM), WAYLON TO SPEAK WITH PATIENT.
[2020-05-30 20:25] VITALS: BP 100/62; PULSE 90; RESP 17; TEMP 36.3; O2SAT 99
--- NOTE | 2020-05-30 20:50 | PC.NURSE ---
PER , PATIENT NOT TO BE SECTION 12 AT THIS TIME. STATES HE DOES THIS ALL THE TIME. IF HE TRIES TO LEAVE OR HURT HIMSELF, WE CAN SECTION 12 HIM AT THAT TIME, BUT HE IS CALM RIGHT NOW . PATIENT REMAINS CALM/COOPERATIVE AT THIS TIME, HOWEVER, HAS BEEN ASKING FOR AND GIVEN COUNTLESS AMOUNTS OF FOOD/BEVERAGES. AWARE OF THE FACT THAT PATIENT IS NO LONGER TO RECEIVE FOOD DURING OVERNIGHT, HAS DEPLETED OVERNIGHT SUPPLY OF SANDWICHES AND CRACKERS. WILL CONTINUE TO MONITOR.
[2020-05-30 22:00] VITALS: RESP 18
--- NOTE | 2020-05-30 22:48 | PC.NURSE ---
OUT OF BED TO BATHROOM, AMBULATES WITH STEADY GAIT. PER WAYLON (CARE TEAM), AWAITING TO HEAR BACK FROM SKILLED NURSING. PATIENT AWARE OF THIS. WILL CONTINUE TO MONITOR.
--- NOTE | 2020-05-30 23:18 | MHC.CARE ---
CARE team evaluated pt and coordinated with [facility] for pt to discharge from ED and return this evening.
== END 2020-05-30 23:28 | disposition home or self-care (01) ==
PROVIDERS: Emergency Provider Internal Medicine
DX: F14.10 Cocaine abuse, uncomplicated (principal); F20.9 Schizophrenia, unspecified; F10.20 Alcohol dependence, uncomplicated; R41.83 Borderline intellectual functioning; F17.210 Nicotine dependence, cigarettes, uncomplicated; Z79.899 Other long term (current) drug therapy
CPT/HCPCS: 80307; 99284

== ENCOUNTER 2020-07-21 20:30 | Emergency (ER) | payer MEDICARE, MEDICAID, SELFPAY ==
[2020-07-21 20:47] VITALS: BP 140/81; PULSE 114; RESP 17; TEMP 37.4; O2SAT 99; BMI 51.0
[2020-07-21 20:52] VITALS: BP 140/81; PULSE 114; RESP 16; TEMP 37.4; O2SAT 99
--- NOTE | 2020-07-21 21:14 | ED.PSYCH ---
HPI - Psych General Chief Complaint: Psychiatric Symptoms Stated Complaint: crisis Time Seen by Provider: 07/21/20 21:14 Source: patient Mode of arrival: EMS Limitations: no limitations History of Present Illness HPI Narrative: Patient history of schizophrenia and substance abuse using cocaine frequent ED visits for suicidal ideation depression comes here for similar feeling says it does not feel good no plan and intent at this time last admission to psych floor was 05/06 with similar situation lives in correction and has active [facility] order on Haldol im monthly injection use lot of cocaine today call the [facility] complaint: suicidal ideation Onset (ago): day(s) Duration: resolved prior to arrival History of same: Yes Related Data Previous Rx's Medication Instructions Recorded benztropine 1 tab PO BEDTIME #30 tab 04/27/20 clozapine 1 tab PO BEDTIME #30 tab 04/27/20 clozapine 3 tab PO BEDTIME #90 tab 04/27/20 desmopressin 0.6 mg PO BEDTIME #90 tab 04/27/20 divalproex 1 tab PO TID #90 tab 04/27/20 docusate sodium [DOK] 1 cap PO BID PRN #60 cap 04/27/20 haloperidol decanoate 1 ml IM QMONTH #1 ml 04/27/20 trazodone 1 tab PO BEDTIME #30 tab 04/27/20 Allergies Allergy/AdvReac Type Severity Reaction Status Date / Time lorazepam [LORAZEPAM] AdvReac Intermediate paradoxical Unverified 03/03/20 15:53 disinhbition risperidone [From RISPERDAL] AdvReac Unknown SEVERE Unverified 03/03/20 15:53 AKATHESIA/ASSAULTIVE BEHAVIOR Review of Systems Review of Systems: Constitutional : No Fever, No Chills ENT/Mouth : No Ear Pain, No Nasal Congestion, No sore throat Eyes: No Eye Pain, No Swelling, No Redness Cardiovascular : No Chest Pain, No SOB Respiratory : No Cough, No Sputum, No Dyspnea Gastrointestinal : No Nausea, No Vomiting, No Diarrhea, No Hematochezia, No Melena Genitourinary : No Dysuria, No Urinary Frequency, No Hematuria Musculoskeletal : No Myalgias Skin : No Skin Lesions, No rash Neuro : No Weakness, No Numbness, No Paresthesias, No Dizziness, No Headache Psych : neg Anxiety, neg Depression, positive SI Heme/Lymph: No Lymphadenopathy Endocrine : No Polyuria, No Polydipsia [facility] Past Medical History Medical History Ankle fracture, left Auditory hallucinations Borderline intellectual functioning Chronic headaches EtOH dependence Incontinence No known health problems Paranoia Schizophrenia Substance abuse Visual hallucinations Social History Social History Household Members: Other Housing: Other Alcohol intake: unknown Smoking Status: Unknown if ever smoked Tobacco Type: Cigarette Packs Per Day: 1 Cigarettes Per Day: 20.0 Substance Use Type: Crack/Cocaine Advance Directives: No Advance Directives Information Provided: No service: No Physical Exam Vital Signs: Vital Signs: Last Vital Signs Temp 99.4 F 07/21/20 20:52 Pulse 114 H 07/21/20 20:52 Resp 16 07/21/20 20:52 BP 140/81 H 07/21/20 20:52 Pulse Ox 99 07/21/20 20:52 Body Mass Index 51.0 Const: General: healthy appearing, comfortable and no acute distress Nutritional Appearance: average body habitus Orientation/consciousness: patient oriented x3 HENMT: Head: Yes normocephalic and Yes atraumatic Eyes: General: appearance normal, both eyes and all related structures Neck: Neck: Yes normal visual inspection Thyroid: Thyroid normal Chest: Chest palpation & inspection: normal palpation of entire chest wall Resp: Effort & Inspection: normal respiratory effort Auscultation: clear to auscultation bilaterally, no crackles and no rales Cardio: Rate: regular rate Rhythm: regular rhythm Heart sounds: S1 normal heart sound present and S2 normal heart sound present GI: Inspection: Yes normal to inspection Palpation (GI): Soft to palpation and nontender Auscultation: normal bowel sounds Skin: General skin exam: no rashes or lesions noted Neuro: General: patient oriented x3 and no focal motor deficits Extrem: General: Yes normal to inspection, Yes no calf tenderness and No pedal edema Psych: Appearance: grossly normal Mental Status: mental status grossly normal Speech and movement: Normal speech and movement present Affect: normal affect Attitude: cooperative Thought process: Normal thought process present Thought content: Normal thought content present Insight: Fair insight present (Psych) Judgement: Fair judgement present (Psych) Course Course Course Narrative: Patient has schizophrenia and cocaine abuse been here multiple times for similar situation at this time patient relax sleeping denied any suicidal ideation headers used cocaine earlier patient is on [facility] order for medication called the correction will take him back in the morning has a plan to follow up with therapist no hallucinations at this time Discharge Plan Discharge Clinical Impression: Substance abuse Schizophrenia Qualifiers: Schizophrenia type: undifferentiated schizophrenia Qualified Code(s): F20.3 - Undifferentiated schizophrenia Patient Disposition: Home, Self-Care Instructions: Cocaine Abuse (ED), Schizophrenia (ED) Additional Instructions: Continue medications and follow-up with therapist as scheduled Prescriptions: No Action clozapine 100 mg tablet 3 tab PO BEDTIME Qty: 90 RF: 0 haloperidol decanoate 100 mg/mL solution 1 ml IM QMONTH Qty: 1 RF: 0 desmopressin 0.2 mg tablet 0.6 mg PO BEDTIME Qty: 90 RF: 0 divalproex 500 mg tablet,delayed release (DR/EC) 1 tab PO TID Qty: 90 RF: 0 trazodone 100 mg tablet 1 tab PO BEDTIME Qty: 30 RF: 0 benztropine 1 mg tablet 1 tab PO BEDTIME Qty: 30 RF: 0 docusate sodium [DOK] 100 mg capsule 1 cap PO BID PRN (Reason: constipation) Qty: 60 RF: 0 clozapine 50 mg tablet 1 tab PO BEDTIME Qty: 30 RF: 0
--- NOTE | 2020-07-21 21:57 | PC.NURSE ---
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 Provider notified, Patient is currently in bed appears sleeping, no distress reported at this time, will continue to monitor.
--- NOTE | 2020-07-21 22:36 | PC.NURSE ---
Group called at [phone], spoke with Alejandro to check on patient's HS medication, Alejandro reported that patient is all set with tonight's medication.
== END 2020-07-22 09:10 | disposition home or self-care (01) ==
PROVIDERS: Emergency Provider Internal Medicine
DX: F33.1 Major depressive disorder, recurrent, moderate (principal); F20.3 Undifferentiated schizophrenia; R45.851 Suicidal ideations; F14.10 Cocaine abuse, uncomplicated; Z79.899 Other long term (current) drug therapy; Z71.6 Tobacco abuse counseling
CPT/HCPCS: 99283

== ENCOUNTER 2020-07-23 18:53 | Emergency (ER) | payer MEDICARE, MEDICAID, SELFPAY ==
[2020-07-23 19:17] VITALS: BP 118/76; PULSE 103; RESP 17; TEMP 36.8; O2SAT 98; BMI 23.5
[2020-07-23 19:40] VITALS: BP 118/76; PULSE 103; RESP 17; TEMP 36.8; O2SAT 98
--- NOTE | 2020-07-23 20:30 | ED_ITS ---
HPI - Psych General Chief Complaint: Psychiatric Symptoms Stated Complaint: Crisis Evaluation Time Seen by Provider: 07/23/20 20:30 Source: patient and EMS Mode of arrival: EMS Limitations: no limitations History of Present Illness HPI Narrative: Patient's history of schizophrenia and cocaine abuse been here frequently after he goes out of the [facility] and smokes cocaine and calls EMS to go to hospital patient was seen here 2 days ago for similar situation. Patient denied any suicidal ideation patient lives in [facility] and has active with her daughter for Haldol monthly basis Related Data Previous Rx's Medication Instructions Recorded benztropine 1 tab PO BEDTIME #30 tab 04/27/20 clozapine 1 tab PO BEDTIME #30 tab 04/27/20 clozapine 3 tab PO BEDTIME #90 tab 04/27/20 desmopressin 0.6 mg PO BEDTIME #90 tab 04/27/20 divalproex 1 tab PO TID #90 tab 04/27/20 docusate sodium [DOK] 1 cap PO BID PRN #60 cap 04/27/20 haloperidol decanoate 1 ml IM QMONTH #1 ml 04/27/20 trazodone 1 tab PO BEDTIME #30 tab 04/27/20 Allergies Allergy/AdvReac Type Severity Reaction Status Date / Time lorazepam [LORAZEPAM] AdvReac Intermediate paradoxical Unverified 07/22/20 10:11 disinhbition risperidone [From RISPERDAL] AdvReac Unknown SEVERE Unverified 07/22/20 10:11 AKATHESIA/ASSAULTIVE BEHAVIOR Review of Systems Review of Systems: Yes Other (Patient refused to answer ) [facility] Past Medical History Medical History Ankle fracture, left Auditory hallucinations Borderline intellectual functioning Chronic headaches EtOH dependence Incontinence No known health problems Paranoia Schizophrenia Substance abuse Visual hallucinations Social History Social History Household Members: Other Housing: Other Alcohol intake: former Smoking Status: Current every day smoker Tobacco Type: Cigarette Packs Per Day: 1 Cigarettes Per Day: 20.0 Smoked in Last 30 Days: Yes Use of substances other than those prescribed or required for medical reasons: No Substance Use Type: Crack/Cocaine Advance Directives: No Advance Directives Information Provided: No service: No Physical Exam Vital Signs: Vital Signs: Last Vital Signs Temp 98.3 F 07/23/20 19:40 Pulse 103 H 07/23/20 19:40 Resp 17 07/23/20 19:40 BP 118/76 07/23/20 19:40 Pulse Ox 98 07/23/20 19:40 Body Mass Index 23.5 Appearance: Alert. Oriented X3. No acute distress. Sleepy Eyes: Pupils equal, round and reactive to light. ENT: Pharynx normal. Neck: Normal inspection. Neck supple. CVS: Normal heart rate and rhythm. Pulses normal. Respiratory: No respiratory distress. Breath sounds normal. Abdomen: Soft and nontender. Bowel sounds are present, no mass palpable, no CVA tenderness Skin: Skin warm and dry. Normal skin color. Normal skin turgor. Extremities: No lower extremity edema. Neuro: Oriented X 3. No motor deficit. No sensory deficit. Discharge Plan Discharge Clinical Impression: Schizophrenia, Substance abuse Patient Disposition: Home, Self-Care Instructions: Schizophrenia (ED) Additional Instructions: Follow-up with therapist Prescriptions: No Action clozapine 100 mg tablet 3 tab PO BEDTIME Qty: 90 RF: 0 haloperidol decanoate 100 mg/mL solution 1 ml IM QMONTH Qty: 1 RF: 0 desmopressin 0.2 mg tablet 0.6 mg PO BEDTIME Qty: 90 RF: 0 divalproex 500 mg tablet,delayed release (DR/EC) 1 tab PO TID Qty: 90 RF: 0 trazodone 100 mg tablet 1 tab PO BEDTIME Qty: 30 RF: 0 benztropine 1 mg tablet 1 tab PO BEDTIME Qty: 30 RF: 0 docusate sodium [DOK] 100 mg capsule 1 cap PO BID PRN (Reason: constipation) Qty: 60 RF: 0 clozapine 50 mg tablet 1 tab PO BEDTIME Qty: 30 RF: 0 Interventions: ED Discharge Assessment Last Done: 07/23/20 20:55 Discharge Date/Time: 07/23/20 20:57
== END 2020-07-23 20:57 | disposition home or self-care (01) ==
PROVIDERS: Emergency Provider Internal Medicine
DX: F20.9 Schizophrenia, unspecified (principal); F14.10 Cocaine abuse, uncomplicated; F17.210 Nicotine dependence, cigarettes, uncomplicated; Z71.6 Tobacco abuse counseling; Z79.899 Other long term (current) drug therapy
CPT/HCPCS: 99284